=== PATIENT | male | born 1980 | race American Indian/Alaskan Native ===

== ENCOUNTER 2021-01-17 15:19 | Emergency (ER) | payer MEDICARE ==
--- NOTE | 2021-01-17 16:54 | Emergency Department Report ---
ED Psych HPI - General Chief Complaint: Psych Stated Complaint: MH EVAL/NON HOMICIDAL/NON SUICIDAL Time Seen by Provider: 01/17/21 16:41 Source: patient Mode of arrival: Stretcher - History of Present Illness Initial Comments: 40-year-old male presents to ED for mental health evaluation from [place]. Patient has reportedly been off his medications. Unsure of patient's exact diagnosis. Patient states, "You know the Kasandra brothers? I'm Param Slaughter and I'm Andre Slaughter. I'm not sure if I'm Kristian Slaughter though." He also states that God is speaking to him. States God told him "the world is mine." He also reports that people are trying to keep him from drinking water. He denies any SI or HI, although, triage nurse reported that patient stated if God tells him to kill somebody, he will kill them. He denies any drug use. Patient is responding to internal stimuli. MD Complaint: altered mental status -: unknown Associated Psychiatric Symptoms: racing thoughts, auditory hallucinations Context: not taking psychiatric Associated Symptoms: denies other symptoms Treatments Prior to Arrival: none - Related Data Allergies Allergy/AdvReac Type Severity Reaction Status Date / Time divalproex sodium Allergy Unknown Verified 01/17/21 16:02 [From [facility]] ED Review of Systems ROS: Stated complaint: MH EVAL/NON HOMICIDAL/NON SUICIDAL Other details as noted in HPI Comment: All other systems reviewed and negative Psychiatric: auditory hallucinations. denies: visual hallucinations, homicidal thoughts, suicidal thoughts ED Past Medical Hx - Past Medical History Hx Psychiatric Treatment: Yes - Surgical History Past Surgical History?: No ED Physical Exam - General Limitations: No Limitations General appearance: alert, in no apparent distress - Head Head exam: Present: atraumatic, normocephalic - Eye Eye exam: Present: normal appearance, EOMI - ENT ENT exam: Present: mucous membranes moist - Neck Neck exam: Present: normal inspection - Respiratory Respiratory exam: Present: normal lung sounds bilaterally. Absent: respiratory distress - Cardiovascular Cardiovascular Exam: Present: regular rate, normal rhythm - GI/Abdominal GI/Abdominal exam: Absent: distended - Extremities Exam Extremities exam: Present: normal inspection - Neurological Exam Neurological exam: Present: alert, oriented X3 - Psychiatric Psychiatric exam: Present: other (Disorganized thoughts, flights of ideas present, responding to internal stimuli, delusional) - Skin Skin exam: Present: warm, dry, intact, normal color ED Course Vital Signs 01/17/21 01/17/21 01/17/21 16:03 16:50 19:35 Temperature 98.0 F Pulse Rate 90 Respiratory 20 Rate Blood Pressure 145/94 Blood Pressure [Left] O2 Sat by Pulse 99 99 99 Oximetry 01/17/21 19:54 Temperature 98.0 F Pulse Rate 67 Respiratory 18 Rate Blood Pressure Blood Pressure 135/77 [Left] O2 Sat by Pulse 100 Oximetry ED Medical Decision Making - Lab Data Result diagrams: 01/17/21 19:09 01/17/21 19:09 - Medical Decision Making 40-year-old male with acute psychosis. Reportedly off of his medications. Unremarkable, vital signs are stable. Patient is medically clear for mental health evaluation. Will dispo per psych. Critical care attestation.: If time is entered above; I have spent that time in minutes in the direct care of this critically ill patient, excluding procedure time. ED Disposition Clinical Impression: Acute psychosis Disposition: [id number]/TX-65 PSY HOSP/PSY UNIT Is pt being admited?: No Condition: Stable Referrals: PRIMARY CARE, [Primary Care Provider] - 3-5 Days
[2021-01-17] MEDS ORDERED: LORazepam 2 MG/ML VIAL IM ONE (17:01)
[2021-01-17] MEDS ORDERED: ZIPRASIDONE MESYLATE 20 MG VIAL IM ONE (17:01)
[2021-01-17 18:35] LABS: Bilirubin,Urine NEG (Negative); Blood,Urine SM (Negative); Color,Urine Yellow (Yellow); Mucus,Urine 1+ /HPF; Protein,Urine <15 mg/dL mg/dL (Negative)
[2021-01-17 18:40] LABS: Amphetamine Screen,Urine Negative; Benzodiazepines Screen,Urine Negative; Cannabinoid Screen,Urine Negative; Cocaine Screen,Urine Negative; Methadone Screen,Urine Negative; Opiate Screen,Urine Negative
[2021-01-17 19:24] LABS: Basophils # (Auto) 0.1 K/mm3 (0.0-0.1); Basophils % (Auto) 0.6 % (0.0-1.8); Eosinophils # (Auto) 0.2 K/mm3 (0.0-0.4); Eosinophils % (Auto) 2.1 % (0.0-4.3); Hematocrit 43.5 % (35.5-45.6); Hemoglobin 14.9 gm/dl (11.8-15.2); Lymphocytes # (Auto) 2.2 K/mm3 (1.2-5.4); Lymphocytes % (Auto) 25.1 % (13.4-35.0); Mean Corpuscular HGB Conc 34 % (32-34); Mean Corpuscular Volume 86 fl (84-94); Monocytes # (Auto) 0.9 K/mm3 (0.0-0.8); Monocytes % (Auto) 9.7 % (0.0-7.3); Platelet Count 168 K/mm3 (140-440); Red Blood Count 5.06 M/mm3 (3.65-5.03); Red Cell Distribution Width 14.8 % (13.2-15.2)
[2021-01-17 19:37] LABS: BUN/Creatinine Ratio 11; Blood Urea Nitrogen 10 mg/dL (9-20); Calcium 9.8 mg/dL (8.4-10.2); Hemolysis Index 19
[2021-01-17 20:02] VITALS: BP 135/77
== END 2021-01-17 22:55 ==
LOC: ED 15:19
DX: F23 Brief psychotic disorder (principal); Z88.8 Allergy status to other drugs, medicaments and biological substances
CPT/HCPCS: 36415; 80048; 80307; 81001; 85025; 96372; 99285; J2060; J3486; 80320; G0480

== ENCOUNTER 2021-02-22 17:12 | Emergency (ER) | payer MEDICARE ==
[2021-02-22] MEDS ORDERED: OLANzapine ZYDIS 5 MG TAB PO ONE (17:18)
--- NOTE | 2021-02-22 17:22 | Emergency Department Report ---
ED Psych HPI - General Stated Complaint: MENTAL HEALTH Time Seen by Provider: 02/22/21 17:16 Source: police - History of Present Illness Initial Comments: Patient presented with police. He was already on a 1013. He was brought in because of bizarre behavior and complaints. Patient states that he does not know why he is here. He states that "they want to be checked out." He cannot tell me who "they" are. He does not know why he should be checked out. He has verbalized multiple different things including feeling like he is seeing me as a cartoon and concerned that I am a cartoon. He believes that I could be an alien due to my glasses. He believes that people are feeding him information into his soul. He does not know how this is happening or when this is happening. He does admit that he was somewhat apprehensive about his roommate because his roommate had a bump on his but that he saw when he came back from the shower without a towel. He states that he felt much better when his roommate left the room. We are uncertain when all of these events began. Patient states that he is "like this forever." - Related Data Allergies Allergy/AdvReac Type Severity Reaction Status Date / Time divalproex sodium Allergy Unknown Verified 01/17/21 16:02 [From [facility]] ED Review of Systems ROS: Stated complaint: MENTAL HEALTH Other details as noted in HPI Comment: All other systems reviewed and negative Constitutional: denies: fever Eyes: denies: vision change ENT: denies: throat pain Respiratory: denies: cough Cardiovascular: denies: chest pain Endocrine: denies: unexplained weight loss Gastrointestinal: denies: abdominal pain Genitourinary: denies: dysuria Musculoskeletal: denies: back pain Skin: denies: rash Neurological: denies: headache Psychiatric: as per HPI Hematological/Lymphatic: denies: easy bruising ED Past Medical Hx - Past Medical History Hx Psychiatric Treatment: Yes - Social History Smoking Status: Never Smoker Substance Use Type: Marijuana ED Physical Exam - General Limitations: Altered Mental Status General appearance: alert, in no apparent distress, obese - Head Head exam: Present: atraumatic, normocephalic, normal inspection - Eye Eye exam: Present: normal appearance, EOMI - ENT ENT exam: Present: normal exam, mucous membranes moist - Neck Neck exam: Present: normal inspection. Absent: meningismus - Respiratory Respiratory exam: Present: normal lung sounds bilaterally. Absent: respiratory distress - Cardiovascular Cardiovascular Exam: Present: regular rate, normal rhythm - GI/Abdominal GI/Abdominal exam: Present: soft. Absent: tenderness - Extremities Exam Extremities exam: Present: normal capillary refill - Back Exam Back exam: Present: full ROM - Neurological Exam Neurological exam: Present: alert, normal gait. Absent: motor sensory deficit - Psychiatric Psychiatric exam: Present: other (Evidence of delusions with paranoia). Absent: suicidal ideation - Skin Skin exam: Present: warm, dry ED Course Vital Signs 02/22/21 18:48 Respiratory 18 Rate O2 Sat by Pulse 95 Oximetry - Reevaluation(s) Reevaluation #1: 02/22/21 17:21 Police were met upon arrival. Labs have been ordered. 1013 was maintained. Reevaluation #2: 02/22/21 19:03 Psychiatric services is familiar with the patient. They have evaluated the patient and believe that inpatient is appropriate. They will arrange admission and subsequent transfer. ED Medical Decision Making - Medical Decision Making Patient presented with acute psychosis. He was paranoid and delusional. He has been seen by psychiatric services. He has a history of similar problems chronically. They believe that inpatient psychiatric care is indicated. He will undergo coronavirus testing and subsequent placement. Critical Care Time: No Critical care attestation.: If time is entered above; I have spent that time in minutes in the direct care of this critically ill patient, excluding procedure time. ED Disposition Clinical Impression: Psychosis Qualifiers: Psychosis type: unspecified psychosis type Qualified Code(s): F29 - Unspecified psychosis not due to a substance or known physiological condition Disposition: 30 STILL A PATIENT Is pt being admited?: No Does the pt Need Aspirin: No Condition: Stable
[2021-02-22 23:01] LABS: Hematocrit 43.5 % (35.5-45.6); Hemoglobin 14.9 gm/dl (11.8-15.2); Mean Corpuscular HGB Conc 34 % (32-34); Mean Corpuscular Volume 88 fl (84-94); Platelet Count 155 K/mm3 (140-440); Red Blood Count 4.96 M/mm3 (3.65-5.03)
[2021-02-22 23:20] LABS: BUN/Creatinine Ratio 10; Blood Urea Nitrogen 9 mg/dL (9-20); Calcium 9.1 mg/dL (8.4-10.2); Hemolysis Index 3
--- NOTE | 2021-02-23 10:31 | Event Note ---
Date: 02/23/21 Patient is 40 years old male admitted with acute psychosis. No overnight issues. Vital signs reviewed and showed isolated reading of high blood pressure of 185/90. I reviewed patient previous record and patient has been normotensive. Will recheck his blood pressure again. Labs reviewed and is unremarkable. Waiting for inpatient psychiatric admission.
--- NOTE | 2021-02-23 10:45 | Consultation ---
History of Present Illness - Reason for Consult Consult date: 02/23/21 Reason for consult: Hallucinations - History of Present Psychiatric Illness Per ED Note: Patient presented with police. He was already on a 1013. He was brought in because of bizarre behavior and complaints. Patient states that he does not know why he is here. He states that "they want to be checked out." He cannot tell me who "they" are. He does not know why he should be checked out. He has verbalized multiple different things including feeling like he is seeing me as a cartoon and concerned that I am a cartoon. He believes that I could be an alien due to my glasses. He believes that people are feeding him information into his soul. He does not know how this is happening or when this is happening. He does admit that he was somewhat apprehensive about his roommate because his roommate had a bump on his but that he saw when he came back from the shower without a towel. He states that he felt much better when his roommate left the room. We are uncertain when all of these events began. Patient states that he is "like this forever." Elvin Kirkland is a 40 year old male who presents to the Ed on 101 due to bizarre behavior. In my interview with the patient, he his psychotic. The patient states his name as Shaun Billy, he is loud with flight of ideas, and laughing inappropriately. The patient is responding to internal stimuli. PAST PSYCHIATRIC HISTORY: Unable to assess PAST MEDICAL HISTORY: Unable to assess Family Psychiatric History: Unable to assess SOCIAL HISTORY: Unable to assess REVIEW OF SYSTEMS : Unable to assess MENTAL STATUS EXAMINATION : Unable to assess Assessment and Plan (1) Psychosis Current Visit: Yes Status: Acute Start zyprexa 10mg po BID The patient to comply with previously prescribed medications Risks, benefits and alternatives of medications discussed with the patient, questions answered and consent obtained from patient. PSYCHOTHERAPY: Supportive psychotherapy provided MEDICAL: Per primary team DELIRIUM PRECAUTIONS: Please re-orient patient frequently, keep lights on during the day, and minimize benzodiazepines and opiates as these medications could worsen patient's confusion. 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 FOLLOW-UP: Will follow. Case staffed with Dr. Vargas Please contact with any questions and/or concerns. Thank you for the consult. Medications and Allergies Allergies Allergy/AdvReac Type Severity Reaction Status Date / Time divalproex sodium Allergy Unknown Verified 01/17/21 16:02 [From [facility]] Mental Status Exam - Vital signs Last Vital Signs Temp 98.3 F 02/23/21 10:36 Pulse 80 02/23/21 10:36 Resp 20 02/23/21 10:36 BP 167/107 02/23/21 10:36 Pulse Ox 99 02/23/21 10:36 Results Result Diagrams: 02/22/21 22:40 02/22/21 22:40 All other labs normal.
[2021-02-23] MEDS ORDERED: amLODIPine 5 MG TAB PO ONE (21:12)
--- NOTE | 2021-02-24 09:04 | Progress Note ---
Subjective - Reason for Consult Consult date: 02/24/21 Reason for consult: psychosis - Chief Complaint Chief complaint: The patient was seen today. He is grandiose. His speech is nonsensical. He has a bizarre look on his face and makes bizarre sounds at times. He is responding to internal stimuli. He says his name is Shaun Billy. He later says his name is Shaun Caceres. He then makes a weird noise. He denies SI/HI. He says "it is impossible for me to kill myself. If I did God will bring me back." He says he has traveled this way "97 times around." The patient says "I will work in about 5000 years." REVIEW OF SYSTEMS Constitutional: Negative for weight loss ENT: Negative for stridor Respiratory: Negative for cough or hemoptysis All other systems reviewed and are negative MENTAL STATUS EXAMINATION General Appearance and Behavior: Age appropriate, good hygiene, wearing appropriate clothes. Cooperation: Cooperative Psychomotor Behavior: Psychomotor normal Mood: Great Affect and affective range: Congruent with stated mood Thought Process: Obsessions Thought Content: Homicidal Speech: Normal volume, Regular rate and rhythm, Suicidal Ideation: Denies Homicidal Ideation: Denies Hallucinations: yes Delusions: yes Impulse Control: Questionable Insight and Judgment: Limited, Poor judgment Memory: Normal Attention:Distractible Orientation: alert and oriented Assessment and Plan (1) Acute Psychosis Current Visit: Yes Status: Acute Treatment Plan [address] 125mg po BID The patient to comply with previously prescribed medications Risks, benefits and alternatives of medications discussed with the patient, questions answered and consent obtained from patient. PSYCHOTHERAPY: Supportive psychotherapy provided MEDICAL: Per primary team DELIRIUM PRECAUTIONS: Please re-orient patient frequently, keep lights on during the day, and minimize benzodiazepines and opiates as these medications could worsen patient's confusion. 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 FOLLOW-UP: Will follow. Case staffed with Dr. Vargas Please contact with any questions and/or concerns. Thank you for the consult. Mental Status Exam - Vital signs Last Vital Signs Temp 97.6 F 02/24/21 02:46 Pulse 71 02/24/21 02:46 Resp 18 02/24/21 02:46 BP 148/87 02/24/21 02:46 Pulse Ox 97 02/24/21 02:46
[2021-02-24] MEDS ORDERED: DIVALPROEX DR 125 MG TAB PO SCH (10:00)
--- NOTE | 2021-02-24 10:21 | Event Note ---
No acute needs at this time. Vital signs stable. Patient is medically clear for psychiatric care. Will defer to psychiatriy team for further treatment recommendations.
[2021-02-24 23:41] LABS: Bilirubin,Urine NEG (Negative); Blood,Urine MOD (Negative); Color,Urine Yellow (Yellow); Mucus,Urine FEW /HPF; Protein,Urine <15 mg/dL mg/dL (Negative); Urobilinogen,Urine < 2.0 mg/dL (<2.0); WBC,Urine < 1.0 /HPF (0.0-6.0)
[2021-02-24 23:48] LABS: Amphetamine Screen,Urine PRESUMPTIVE NEGATIVE; Benzodiazepines Screen,Urine PRESUMPTIVE NEGATIVE; Cannabinoid Screen,Urine PRESUMPTIVE NEGATIVE; Cocaine Screen,Urine PRESUMPTIVE NEGATIVE; Methadone Screen,Urine PRESUMPTIVE NEGATIVE; Opiate Screen,Urine PRESUMPTIVE NEGATIVE
--- NOTE | 2021-02-25 10:31 | Progress Note ---
Subjective - Reason for Consult Consult date: 02/25/21 Reason for consult: psychosis - Chief Complaint Chief complaint: The patient was seen today. He is still quite delusional and grandiose. He says his name is Shaun Billy, and states he has a contract with the [employer] and makes millions of dollars. He then states "or I could be Shaun Caceres. He was a pretty good tisha." The patient says Dimas Urena is his soulmate. He denies hallucinations, but states "I see high tech things, flowing devices like Star Trek." The patient denies SI/HI. The patient asks me for ensure. He says "I know I look fat but I'm very thin." REVIEW OF SYSTEMS Constitutional: Negative for weight loss ENT: Negative for stridor Respiratory: Negative for cough or hemoptysis All other systems reviewed and are negative MENTAL STATUS EXAMINATION General Appearance and Behavior: Age appropriate, good hygiene, wearing appropriate clothes. Cooperation: Cooperative Psychomotor Behavior: Psychomotor normal Mood: Great Affect and affective range: Congruent with stated mood Thought Process: Obsessions Thought Content: Homicidal Speech: Normal volume, Regular rate and rhythm, Suicidal Ideation: Denies Homicidal Ideation: Denies Hallucinations: yes Delusions: yes Impulse Control: Questionable Insight and Judgment: Limited, Poor judgment Memory: Normal Attention:Distractible Orientation: alert and oriented Assessment and Plan (1) Acute Psychosis Current Visit: Yes Status: Acute Treatment Plan [address] 125mg po BID Start Risperidon 1mg po BID d/c Olanzapine Start Vistaril 50mg po BID The patient to comply with previously prescribed medications Risks, benefits and alternatives of medications discussed with the patient, questions answered and consent obtained from patient. PSYCHOTHERAPY: Supportive psychotherapy provided MEDICAL: Per primary team DELIRIUM PRECAUTIONS: Please re-orient patient frequently, keep lights on during the day, and minimize benzodiazepines and opiates as these medications could worsen patient's confusion. 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 FOLLOW-UP: Will follow. Case staffed with Dr. Vargas Please contact with any questions and/or concerns. Thank you for the consult. Mental Status Exam - Vital signs Last Vital Signs Temp 98.0 F 02/25/21 08:08 Pulse 94 H 02/25/21 08:08 Resp 20 09/11/21 08:08 BP 192/91 02/25/21 08:08 Pulse Ox 100 02/25/21 08:22
[2021-02-25] MEDS ORDERED: hydrOXYzine PAMOATE 25 MG CAP PO SCH (11:00)
[2021-02-25] MEDS ORDERED: risperiDONE 1 MG TAB PO SCH (11:00)
[2021-02-25] MEDS ORDERED: amLODIPine 5 MG TAB PO ONE (12:15)
--- NOTE | 2021-02-25 12:15 | Event Note ---
Date: 02/25/21 S: No events reported overnight. O: Vital Signs - 24 hr 02/24/21 02/25/21 02/25/21 20:00 01:00 08:08 Temperature 98.9 F 98.5 F 98.0 F Pulse Rate 90 62 94 H Respiratory 20 18 20 Rate Blood Pressure 186/118 157/77 192/91 [Right] O2 Sat by Pulse 98 100 100 Oximetry 02/25/21 08:22 Temperature Pulse Rate Respiratory Rate Blood Pressure [Right] O2 Sat by Pulse 100 Oximetry A: Acute psychosis, hypertension P: 1013/awaiting inpatient psych. Will initiate amlodipine for hypertension
[2021-02-25 19:48] VITALS: BP 174/100
== END 2021-02-26 09:44 | disposition still patient (30) ==
LOC: EEVIPCON 17:12 → ED 17:12
DX: F29 Unspecified psychosis not due to a substance or known physiological condition (principal); F12.90 Cannabis use, unspecified, uncomplicated; Z20.822 Contact with and (suspected) exposure to COVID-19
CPT/HCPCS: 36415; 80048; 85027; 99284; U0003; 80307; 80320; 81001; G0480; Q0177